=== PATIENT | male | born 1940 | race Caucasian/White ===

== ENCOUNTER → 2017-07-08 | Outpatient (CLI) | payer MEDICARE, OTHER ==
[~2017-07-08] MED LIST: ALLO100 PO; AMLO5 PO; Aspir 8181 MG PO; CALC.25 PO; CIPR500 PO; DIPH50 PO; DOXA4 PO; EZ NITE SLEEP25 MG PO; EZET10 PO; FEBU40TA PO; FLAX PO; HYDACE5 PO; LEVSOD50 PO; METO25ER; OLME20; OLME40 PO; OXYC10ER; Pravachol40 MG PO; ROSU10TA; VITAMIN D32000 UNIT PO
== END | disposition home or self-care (01) ==
LOC: PLD 09:30
DX: C61 Malignant neoplasm of prostate (principal)
CPT/HCPCS: 88305

== ENCOUNTER 2017-11-07 08:45 | Day surgery (SDC) | payer MEDICARE, OTHER ==
[~2017-11-07 08:45] MED LIST changes: -DIPH50 PO; -FEBU40TA PO; -LEVSOD50 PO; -VITAMIN D32000 UNIT PO
== END 2017-11-07 12:30 | disposition home or self-care (01) ==
LOC: RAD 08:45
PROC: BR29YZZ Computerized Tomography (CT Scan) of Lumbar Spine using Other Contrast (ICD-10-PCS; principal; 2017-11-07)
DX: M51.16 Intervertebral disc disorders with radiculopathy, lumbar region (principal); M46.96 Unspecified inflammatory spondylopathy, lumbar region
CPT/HCPCS: 62304; 72132; Q9966

== ENCOUNTER → 2018-03-17 | Outpatient (CLI) | payer MEDICARE, OTHER | END | disposition home or self-care (01) | LOC: PLD 07:48 → LAB SHORT 07:48 | DX: D48.5 Neoplasm of uncertain behavior of skin (principal) | CPT/HCPCS: 88305 ==

== ENCOUNTER 2018-08-06 13:34 | Day surgery (SDC) | payer MEDICARE, OTHER ==
[~2018-08-06] VITALS: Ht 180.3 cm; Wt 113.4 kg
[~2018-08-06 13:34] MED LIST changes: +DIPH50 PO; +FEBU40TA PO; +LEVSOD50 PO; +VITAMIN D32000 UNIT PO
--- NOTE | 2018-08-06 13:58 | NUR ---
08/06/18 1358 Merrick Cifuentes VERSED 1MG IV GIVEN PER DR. ALVARADO ORDER
--- NOTE | 2018-08-06 14:40 | NUR ---
08/06/18 1440 Angelita Hayes PT INTO RECLINER AT 1438, STEADY DURING TRANSFER. AT CHAIRSIDE, PT TOLERATING PO NOURISHMENT AND DENIES PAIN/NAUSEA AT THIS TIME. VSS
== END 2018-08-06 15:00 | disposition home or self-care (01) ==
LOC: ORSCSDS 13:34
PROVIDERS: Orthopaedic Surgery
PROC: 01N54ZZ Release Median Nerve, Percutaneous Endoscopic Approach (ICD-10-PCS; principal; 2018-08-06 15:30)
DX: G56.01 Carpal tunnel syndrome, right upper limb (principal); E11.9 Type 2 diabetes mellitus without complications; I10 Essential (primary) hypertension; I25.10 Atherosclerotic heart disease of native coronary artery without angina pectoris; G47.33 Obstructive sleep apnea (adult) (pediatric); E03.9 Hypothyroidism, unspecified; Z79.899 Other long term (current) drug therapy; Z79.82 Long term (current) use of aspirin
CPT/HCPCS: 82947; J0690; J2250; J7120

== ENCOUNTER 2018-09-14 01:36 | Day surgery (SDC) | payer MEDICARE, OTHER ==
--- NOTE | 2018-09-14 13:52 | NUR ---
PATIENT D/C HOME WITH COPY OF D/C INSTRUCTIONS AMBULATORY.
--- NOTE | 2018-09-15 10:15 | NUR ---
LATE ENTRY- PATIENT WITH GOOD SENSATION AND STRENGTH BLE PRIOR TO DISCHARGE HOME. DRESSING/BANDAID TO LOW BACK REMAINED UNCHANGED C,D,I.
== END 2018-09-14 22:41 | disposition home or self-care (01) ==
LOC: RAD 01:36 → CT 11:00 → RAD 22:41
DX: M47.26 Other spondylosis with radiculopathy, lumbar region (principal); M48.062 Spinal stenosis, lumbar region with neurogenic claudication
CPT/HCPCS: 62304; 72132; Q9966

== ENCOUNTER 2018-11-25 10:00 | Day surgery (SDC) | payer MEDICARE, OTHER ==
[~2018-11-25] VITALS: Wt 113.2 kg
[~2018-11-25 10:00] MED LIST changes: +HYDCHL12.5 PO; +LEVOXY PO
--- NOTE | 2018-11-25 11:10 | NUR ---
Ambulatory in Day Surgery. Patient states colon prep results clear. History, Chart, Medications and Allergies reviewed before start of procedure. Lungs clear T/O to Auscultation. Patient confirms NPO status and agrees with scheduled surgery. Patient States Post-Procedure ride home has been arranged. Pt's at bedside.
--- NOTE | 2018-11-25 11:32 | NUR ---
11/25/18 1132 Laureano Donaldson History, Chart, Medications and Allergies reviewed before start of procedure.MONITOR INTACT WITH CONTINUOUS PULSE OXIMETRY AND INTERMITTENT BP.3-LEAD EKG REVIEWED WITH PHYSICIAN PRIOR TO START OF PROCEDURE.O2 VIA N/C INTACT THROUGHOUT SEDATION/PROCEDURE. Patient confirms NPO status and agrees with scheduled surgery.PATIENT DETERMINED TO BE ASA APPROPRIATE FOR PROPOFOL SEDATION PRIOR TO START OF PROCEDURE BY DR. HUI.
--- NOTE | 2018-11-25 12:12 | NUR ---
"DAY SURGERY RN | Report from Ronaldo ASTORGA. Sent Ronaldo Armas RN to lunch."
--- NOTE | 2018-11-25 12:31 | NUR ---
"DAY SURGERY RN | PATIENT DISCHARGE VSS. A/O. NO ISSUES. Discharge instructions given to patient with family present. IV out without issue. Patient denies nausea, pain. Tolerating PO fluids. Patient taken in wheelchair to front entrance by volunteer to private vehicle. is tractor trailer moving van driver."
== END 2018-11-25 22:53 | disposition home or self-care (01) ==
LOC: ORSCMMR 10:00 → ORD 11:00 → ORSCMMR 22:53
PROVIDERS: Internal Medicine Gastroenterology
PROC: 0DBP8ZX Excision of Rectum, Via Natural or Artificial Opening Endoscopic, Diagnostic (ICD-10-PCS; principal; 2018-11-25 11:00)
PROC: 0DBM8ZX Excision of Descending Colon, Via Natural or Artificial Opening Endoscopic, Diagnostic (ICD-10-PCS; principal; 2018-11-25 11:00)
DX: Z12.11 Encounter for screening for malignant neoplasm of colon (principal); Z80.0 Family history of malignant neoplasm of digestive organs; Z86.010 Personal history of colon polyps; D12.4 Benign neoplasm of descending colon; K62.1 Rectal polyp; K57.30 Diverticulosis of large intestine without perforation or abscess without bleeding; E03.9 Hypothyroidism, unspecified; Z79.899 Other long term (current) drug therapy; I10 Essential (primary) hypertension
CPT/HCPCS: 82947; 88305; J2704; J7120

== ENCOUNTER 2018-12-02 11:37 | Day surgery (SDC) | payer MEDICARE, OTHER ==
[~2018-12-02] VITALS: Ht 180.3 cm; Wt 113.3 kg
--- NOTE | 2018-12-02 12:26 | NUR ---
12/02/18 1226 AGUILA TONG CALLED SHE SAID NO MEDS WERE TAKEN THIS MORNING
== END 2018-12-02 13:11 | disposition home or self-care (01) ==
LOC: ORSCSDS 11:37
PROVIDERS: Anesthesiology
PROC: 3E0R33Z Introduction of Anti-inflammatory into Spinal Canal, Percutaneous Approach (ICD-10-PCS; principal; 2018-12-02 14:30)
DX: M96.1 Postlaminectomy syndrome, not elsewhere classified (principal); M51.16 Intervertebral disc disorders with radiculopathy, lumbar region; I10 Essential (primary) hypertension; Z95.0 Presence of cardiac pacemaker; E03.9 Hypothyroidism, unspecified; E11.9 Type 2 diabetes mellitus without complications; I25.10 Atherosclerotic heart disease of native coronary artery without angina pectoris; Z79.899 Other long term (current) drug therapy
CPT/HCPCS: J1040

== ENCOUNTER 2019-12-10 20:42 | Emergency (ER) | payer MEDICARE, OTHER ==
[~2019-12-10] VITALS: Ht 180.3 cm; Wt 106.6 kg
[2019-12-10 21:39] LABS: BASOPHILS ABSOLUTE AUTO 0.03 K/mm3 (0.00-0.23); BASOPHILS PERCENT AUTO 0 % (0-2); EOSINOPHILS ABSOLUTE AUTO 0.04 K/mm3 (0.00-0.68); EOSINOPHILS PERCENT AUTO 0 % (0-6); Hematocrit 39.3 % (37.0-53.0); Hemoglobin 12.8 g/dL (13.5-17.5); IMMATURE GRAN ABSOLUTE AUTO 0.07 K/mm3 (0.00-0.10); IMMATURE GRAN PERCENT AUTO 1 % (0-1); LYMPHOCYTES ABSOLUTE AUTO 0.95 K/mm3 (0.84-5.20); LYMPHOCYTES PERCENT AUTO 6 % (21-46); MONOCYTES ABSOLUTE AUTO 1.24 K/mm3 (0.16-1.47); MONOCYTES PERCENT AUTO 8 % (4-13); Mean Corpuscular HGB 29.6 pg (26.0-34.0); Mean Corpuscular HGB Conc 32.6 g/dL (31.5-36.5); Mean Corpuscular Volume 91 fL (80-100); Mean Platelet Volume 11.5 fL (9.1-12.4); NEUTROPHILS ABSOLUTE AUTO 12.76 K/mm3 (1.96-9.15); NEUTROPHILS PERCENT AUTO 85 % (41-73); Platelet Count 188 K/mm3 (150-400); RDW Coefficient Variation 13.2 % (11.7-14.2); RDW Standard Deviation 44.6 fL (35.1-46.3); Red Blood Cell Count 4.32 M/mm3 (4.30-5.90); White Blood Cell Count 15.09 K/mm3 (4.00-11.30)
[2019-12-10 21:58] LABS: Albumin, Blood 3.6 g/dL (3.4-5.0); Bun/Creatinine Ratio 18.8 (12.0-20.0); Calcium, Blood 9.3 mg/dL (8.5-10.1); Creatinine, Blood 2.02 mg/dL (0.60-1.20); Globulin, Blood 3.7 g/dL (2.2-4.0); Potassium, Blood 4.2 mmol/L (3.5-5.5); Total Protein, Blood 7.3 g/dL (6.4-8.2)
[2019-12-10 23:11] LABS: Source, Urine Clean Catch
[2019-12-10] MEDS ORDERED: AMLO10 PO (23:11)
[2019-12-10] MEDS ORDERED: NEBI10 PO (23:11)
[2019-12-10] MEDS ORDERED: CALC.25 PO (23:11)
[2019-12-10] MEDS ORDERED: GUAIFENESIN AC473 M1 PO (23:12)
[2019-12-10] MEDS ORDERED: FLAX SEED OIL1000 MG PO (23:12)
[2019-12-10] MEDS ORDERED: FEBU40TA PO (23:12)
[2019-12-10 23:13] LABS: Blood, Urine 4+ (Neg); Glucose Qualitative, Urine Neg (Neg); Ketones, Urine Neg (Neg); Leukocyte Esterase, Urine 3+ (Neg); Nitrite, Urine Pos (Neg); Protein, Urine 3+ (Neg); Urobilinogen, Urine NORM (Normal)
[2019-12-10] MEDS ORDERED: GABA300 PO (23:13)
[2019-12-10] MEDS ORDERED: FLUT.05NI (23:13)
[2019-12-10] MEDS ORDERED: TELM20 PO (23:14)
[2019-12-10] MEDS ORDERED: LIVALO2 MG PO (23:14)
[2019-12-10] MEDS ORDERED: HYDCHL12.5 PO (23:14)
[2019-12-10] MEDS ORDERED: EUTHYROX50 MCG PO (23:14)
[2019-12-10] MEDS ORDERED: VITAMIN D350 MC2 PO (23:15)
[2019-12-10] MEDS ORDERED: TRAM50 PO (23:15)
[2019-12-10 23:20] LABS: Appearance, Urine Cloudy (Clear); Bilirubin, Urine 1+ (Neg); Color, Urine Yellow (P-Yellow)
[2019-12-10 23:21] LABS: Bacteria Many /hpf; Red Blood Cells, Urine 0-2 /hpf (0-2); Squamous Epithelial Cells Rare /hpf (Few); White Blood Cells, Urine TNTC /hpf (0-5)
[2019-12-11 00:17] LABS: Adenovirus Not Detected (NOT DETECT); Bordetella pertussis Not Detected (NOT DETECT); Chlamydophila pneumoniae Not Detected (NOT DETECT); Coronavirus 229E Not Detected (NOT DETECT); Coronavirus HKU1 Not Detected (NOT DETECT); Coronavirus NL63 Not Detected (NOT DETECT); Coronavirus OC43 Not Detected (NOT DETECT); Human Metapneumovirus Not Detected (NOT DETECT); Human Rhinovirus/Enterovirus Not Detected (NOT DETECT); Influenza A/2009-H1 Not Detected (NOT DETECT); Influenza A/H1 Not Detected (NOT DETECT); Influenza A/H3 Not Detected (NOT DETECT); Influenza B Not Detected (NOT DETECT); Mycoplasma pneumoniae Not Detected (NOT DETECT); Parainfluenza Virus 1 Not Detected (NOT DETECT); Parainfluenza Virus 2 Not Detected (NOT DETECT); Parainfluenza Virus 3 Not Detected (NOT DETECT); Parainfluenza Virus 4 Not Detected (NOT DETECT); Respiratory Syncytial Virus Not Detected (NOT DETECT)
[2019-12-11] MEDS ORDERED: CEPH500 PO (01:54)
[2019-12-11] MEDS ORDERED: Cipro500 MG PO (01:54)
== END 2019-12-11 02:25 | disposition home or self-care (01) ==
LOC: ER 20:42
PROVIDERS: Emergency Medicine
DX: N39.0 Urinary tract infection, site not specified (principal); Z88.5 Allergy status to narcotic agent; Z88.6 Allergy status to analgesic agent; Z88.8 Allergy status to other drugs, medicaments and biological substances; Z79.899 Other long term (current) drug therapy; I12.9 Hypertensive chronic kidney disease with stage 1 through stage 4 chronic kidney disease, or unspecified chronic kidney disease; N18.9 Chronic kidney disease, unspecified
CPT/HCPCS: 0099U; 71045; 80053; 81001; 85025; 87077; 87086; 87186; 96365; 99284-25; J0696

== ENCOUNTER 2020-04-05 09:53 | Emergency (ER) | payer MEDICARE, OTHER ==
[~2020-04-05] VITALS: Ht 180.3 cm; Wt 95.2 kg
[~2020-04-05 09:53] MED LIST changes: +AMLO10 PO; +CEPH500 PO; +Cipro500 MG PO; +EUTHYROX50 MCG PO; +FLAX SEED OIL1000 MG PO; +FLUT.05NI; +GABA300 PO; +GUAIFENESIN AC473 M1 PO; +LIVALO2 MG PO; +NEBI10 PO; +TELM20 PO; +TRAM50 PO; +VITAMIN D350 MC2 PO
[2020-04-05 10:18] LABS: BASOPHILS ABSOLUTE AUTO 0.04 K/mm3 (0.00-0.23); BASOPHILS PERCENT AUTO 1 % (0-2); EOSINOPHILS ABSOLUTE AUTO 0.15 K/mm3 (0.00-0.68); EOSINOPHILS PERCENT AUTO 2 % (0-6); Hematocrit 38.4 % (37.0-53.0); Hemoglobin 12.2 g/dL (13.5-17.5); IMMATURE GRAN ABSOLUTE AUTO 0.02 K/mm3 (0.00-0.10); IMMATURE GRAN PERCENT AUTO 0 % (0-1); LYMPHOCYTES ABSOLUTE AUTO 1.74 K/mm3 (0.84-5.20); LYMPHOCYTES PERCENT AUTO 20 % (21-46); MONOCYTES ABSOLUTE AUTO 0.75 K/mm3 (0.16-1.47); MONOCYTES PERCENT AUTO 9 % (4-13); Mean Corpuscular HGB Conc 31.8 g/dL (31.5-36.5); Mean Corpuscular Volume 94 fL (80-100); Mean Platelet Volume 11.3 fL (9.1-12.4); NEUTROPHILS ABSOLUTE AUTO 5.87 K/mm3 (1.96-9.15); NEUTROPHILS PERCENT AUTO 68 % (41-73); Platelet Count 213 K/mm3 (150-400); RDW Coefficient Variation 13.3 % (11.7-14.2); Red Blood Cell Count 4.07 M/mm3 (4.30-5.90); White Blood Cell Count 8.57 K/mm3 (4.00-11.30)
[2020-04-05 10:28] LABS: International Normalized Ratio 1.01; Prothrombin Time Results 10.8 Sec (9.7-11.5)
[2020-04-05 10:35] LABS: Alanine Aminotransfer (ALT/SGP 39 U/L (12-78); Albumin, Blood 3.7 g/dL (3.4-5.0); Albumin/Globulin Ratio 1.2 (0.8-1.8); Alk Phos 63 U/L (50-136); Anion Gap 6 mmol/L (6-16); Aspartate Aminotrans (AST/SGOT 28 U/L (12-37); Bilirubin, Total 0.6 mg/dL (0.1-1.0); Blood Urea Nitrogen 25 mg/dL (8-24); Bun/Creatinine Ratio 16.8 (12.0-20.0); CO2, Blood 28 mmol/L (21-32); Calcium, Blood 9.3 mg/dL (8.5-10.1); Chloride, Blood 106 mmol/L (98-108); Creatinine, Blood 1.49 mg/dL (0.60-1.20); Ethanol (Alcohol), Blood, Med <3 mg/dL; Globulin, Blood 3.1 g/dL (2.2-4.0); Glomerular Filtration Rate 48 (60-); Glucose, Blood 166 mg/dL (70-99); Potassium, Blood 4.6 mmol/L (3.5-5.5); Sodium, Blood 140 mmol/L (136-145); Total Protein, Blood 6.8 g/dL (6.4-8.2)
[2020-04-05] MEDS ORDERED: CODACE30 PO (12:25)
== END 2020-04-05 13:57 | disposition home or self-care (01) ==
LOC: ER 09:53
PROVIDERS: Emergency Medicine
DX: S43.014A Anterior dislocation of right humerus, initial encounter (principal); S01.81XA Laceration without foreign body of other part of head, initial encounter; J90 Pleural effusion, not elsewhere classified; I10 Essential (primary) hypertension; Z88.5 Allergy status to narcotic agent; Z88.6 Allergy status to analgesic agent; Z79.899 Other long term (current) drug therapy; Z87.442 Personal history of urinary calculi; Z95.0 Presence of cardiac pacemaker; W11.XXXA Fall on and from ladder, initial encounter
CPT/HCPCS: 70450; 71045; 71260; 72125; 73020; 73030; 74177; 80053; 83690; 85025; 85610; G0480; J2704; J3010; J7030; Q9967

== ENCOUNTER → 2020-05-29 | Outpatient (CLI) | payer MEDICARE, OTHER ==
[~2020-05-29] MED LIST changes: +CEFP200 PO; +CODACE30 PO
== END | disposition home or self-care (01) ==
LOC: PLD 10:23 → LAB SHORT 10:23
DX: D48.5 Neoplasm of uncertain behavior of skin (principal)
CPT/HCPCS: 88305

== ENCOUNTER 2020-10-12 20:03 | Emergency (ER) | payer MEDICARE, OTHER ==
[~2020-10-12] VITALS: Ht 180.3 cm; Wt 108.9 kg
[~2020-10-12 20:03] MED LIST changes: -CEFP200 PO
[2020-10-13 00:45] LABS: BASOPHILS ABSOLUTE AUTO 0.02 K/mm3 (0.00-0.23); BASOPHILS PERCENT AUTO 0 % (0-2); EOSINOPHILS ABSOLUTE AUTO 0.01 K/mm3 (0.00-0.68); EOSINOPHILS PERCENT AUTO 0 % (0-6); Hematocrit 34.9 % (37.0-53.0); Hemoglobin 11.4 g/dL (13.5-17.5); IMMATURE GRAN ABSOLUTE AUTO 0.03 K/mm3 (0.00-0.10); IMMATURE GRAN PERCENT AUTO 0 % (0-1); LYMPHOCYTES ABSOLUTE AUTO 0.86 K/mm3 (0.84-5.20); LYMPHOCYTES PERCENT AUTO 8 % (21-46); MONOCYTES ABSOLUTE AUTO 1.18 K/mm3 (0.16-1.47); MONOCYTES PERCENT AUTO 11 % (4-13); Mean Corpuscular HGB Conc 32.7 g/dL (31.5-36.5); Mean Corpuscular Volume 92 fL (80-100); Mean Platelet Volume 12.5 fL (9.1-12.4); NEUTROPHILS ABSOLUTE AUTO 8.46 K/mm3 (1.96-9.15); NEUTROPHILS PERCENT AUTO 80 % (41-73); Platelet Count 166 K/mm3 (150-400); RDW Coefficient Variation 13.9 % (11.7-14.2); RDW Standard Deviation 47.2 fL (35.1-46.3); White Blood Cell Count 10.56 K/mm3 (4.00-11.30)
[2020-10-13 00:56] LABS: Albumin, Blood 3.2 g/dL (3.4-5.0); Bilirubin, Total 0.8 mg/dL (0.1-1.0); Bun/Creatinine Ratio 19.4 (12.0-20.0); Calcium, Blood 8.5 mg/dL (8.5-10.1); Creatinine, Blood 1.75 mg/dL (0.60-1.20); Globulin, Blood 3.3 g/dL (2.2-4.0); Potassium, Blood 4.7 mmol/L (3.5-5.5); Total Protein, Blood 6.5 g/dL (6.4-8.2)
[2020-10-13 01:09] LABS: Source, Urine Clean Catch
[2020-10-13 01:14] LABS: Bilirubin, Urine Neg (Neg); Blood, Urine 4+ (Neg); Glucose Qualitative, Urine Neg (Neg); Ketones, Urine Neg (Neg); Leukocyte Esterase, Urine 3+ (Neg); Nitrite, Urine Pos (Neg); Protein, Urine 2+ (Neg); Specific Gravity, Urine 1.015 (1.003-1.022); Urobilinogen, Urine NORM (Normal)
[2020-10-13 01:15] LABS: Appearance, Urine Cloudy (Clear); Color, Urine Yellow (P-Yellow)
[2020-10-13 01:22] LABS: Bacteria Many /hpf; Squamous Epithelial Cells Few /hpf (Few); White Blood Cells, Urine TNTC /hpf (0-5)
[2020-10-13] MEDS ORDERED: CEFP200 PO (03:02)
== END 2020-10-13 03:37 | disposition home or self-care (01) ==
LOC: ER 20:03
PROVIDERS: Emergency Medicine
DX: N39.0 Urinary tract infection, site not specified (principal); I12.9 Hypertensive chronic kidney disease with stage 1 through stage 4 chronic kidney disease, or unspecified chronic kidney disease; N18.9 Chronic kidney disease, unspecified; Z79.899 Other long term (current) drug therapy; Z88.5 Allergy status to narcotic agent; Z88.6 Allergy status to analgesic agent; Z95.0 Presence of cardiac pacemaker
CPT/HCPCS: 36415; 80053; 81001; 85025; 87077; 87086; 87186; 96365; 99283; J0696

== ENCOUNTER → 2020-11-06 | Outpatient (CLI) | payer MEDICARE, OTHER ==
[~2020-11-06] MED LIST changes: +CEFP200 PO
[2020-11-06 14:07] LABS: Source, Urine Clean Catch
[2020-11-06 14:10] LABS: Appearance, Urine Cloudy (Clear); Bilirubin, Urine Neg (Neg); Blood, Urine 1+ (Neg); Color, Urine Yellow (P-Yellow); Glucose Qualitative, Urine NORM (Normal); Ketones, Urine 1+ (Neg); Leukocyte Esterase, Urine 2+ (Neg); Nitrite, Urine Pos (Neg); Protein, Urine 1+ (Neg); Specific Gravity, Urine 1.015 (1.003-1.022); Urobilinogen, Urine NORM (Normal)
[2020-11-06 14:16] LABS: Bacteria Many /hpf; Squamous Epithelial Cells Rare /hpf (Few); White Blood Cells, Urine TNTC /hpf (0-5)
== END ==
LOC: LAB EV 14:05 → LAB SHORT 14:05
PROVIDERS: Family Medicine
DX: N39.0 Urinary tract infection, site not specified (principal)
CPT/HCPCS: 81001; 87077; 87086; 87186

== ENCOUNTER → 2020-12-19 | Outpatient (CLI) | payer MEDICARE, OTHER | LOC: LAB 14:16 → LAB SHORT 14:16 | DX: D48.5 Neoplasm of uncertain behavior of skin (principal) | CPT/HCPCS: 88305 ==

== ENCOUNTER → 2021-05-15 | Outpatient (CLI) | payer MEDICARE, OTHER | END | disposition home or self-care (01) | LOC: LAB SHORT 15:35 | DX: N39.0 Urinary tract infection, site not specified (principal) | CPT/HCPCS: 87077; 87086; 87186 ==

== ENCOUNTER → 2021-05-29 | Outpatient (CLI) | payer MEDICARE, OTHER | END | disposition home or self-care (01) | LOC: LAB SHORT 11:43 | DX: D48.5 Neoplasm of uncertain behavior of skin (principal) | CPT/HCPCS: 88305 ==

== ENCOUNTER 2021-06-21 10:17 | Day surgery (SDC) | payer MEDICARE, OTHER ==
[~2021-06-21] VITALS: Ht 180.3 cm; Wt 111.4 kg
[~2021-06-21 10:17] MED LIST changes: +ASPI81CH PO; +ATOR40TA PO; +Bisoprolol Fumar5 MG PO
--- NOTE | 2021-06-21 14:26 | NUR ---
DISCHARGE INSTRUCTIONS REVIEWED WITH PT, VERBALIZES UNDERSTANDING OF INSTRUCTIONS.
--- NOTE | 2021-06-21 15:10 | NUR ---
DR. KO HERE TO EVALUATE INCISION SITE. ICE APPLIED FOR 30 MINUTES PRIOR TO EVALUATION. SITE LESS SWOLLEN.
--- NOTE | 2021-06-21 15:20 | NUR ---
DISCHARGED HOME VIA WHEELCHAIR. INCISION DRESSING DRY AND INTACT. DRIVING.
== END 2021-06-21 23:30 | disposition home or self-care (01) ==
LOC: MHTC 10:17
DX: Z45.010 Encounter for checking and testing of cardiac pacemaker pulse generator [battery] (principal); I25.10 Atherosclerotic heart disease of native coronary artery without angina pectoris; E78.5 Hyperlipidemia, unspecified; E11.9 Type 2 diabetes mellitus without complications; Z88.6 Allergy status to analgesic agent
CPT/HCPCS: 33228; 99152; 99153; C1781; C1785; J0690; J1644; J2250; J3010; J7040

== ENCOUNTER → 2021-08-29 | Outpatient (CLI) | payer MEDICARE, OTHER ==
[2021-08-29 18:38] LABS: Creatinine Urine 93.1 mg/dL (27.00-270.00); Protein, Urine Quantitative 21.8 mg/dL (0.0-11.9)
[2021-08-29 18:40] LABS: Microalbumin, Urine Quant. 74.4 mg/L (0.000-20.000)
== END | disposition home or self-care (01) ==
LOC: LAB SHORT 08:00
PROVIDERS: Internal Medicine Nephrology
DX: N18.30 Chronic kidney disease, stage 3 unspecified (principal); D63.1 Anemia in chronic kidney disease; E55.9 Vitamin D deficiency, unspecified; E78.00 Pure hypercholesterolemia, unspecified; E27.0 Other adrenocortical overactivity; R76.9 Abnormal immunological finding in serum, unspecified; R94.5 Abnormal results of liver function studies; R94.6 Abnormal results of thyroid function studies
CPT/HCPCS: 82043; 82570; 84156

== ENCOUNTER 2022-08-30 06:51 | Day surgery (SDC) | payer MEDICARE, OTHER ==
[~2022-08-30] VITALS: Ht 180.3 cm; Wt 114.0 kg
[~2022-08-30 06:51] MED LIST changes: +FERRIC X-150150 M1 PO
--- NOTE | 2022-08-30 10:07 | NUR ---
10CC AIR REMOVED FROM R WRIST TR BAND. -BLEEDING OR SWELLING.
--- NOTE | 2022-08-30 11:00 | NUR ---
R WRIST TR BAND REMOVED /S BLEEDING OR SWELLING/. PUNCTURE AREA CLEANED /C NS AND CLOTH DOT DRSG PLACED. R WRIST SPLINT REAPPLIED. PT AND FAMILY VERBALIZED UNDERSTANDING OF WRITTEN AND VERBAL D/C INST. IV REMOVED. PT TAKEN OUT OF THE [facility]ENTER VIA W/C.
--- NOTE | 2022-08-30 11:31 | NUR ---
PT DISCHARGED PER W/C WITH ONE STAFF.
== END 2022-08-30 13:05 | disposition home or self-care (01) ==
LOC: MHTC 06:51
DX: I25.110 Atherosclerotic heart disease of native coronary artery with unstable angina pectoris (principal); E78.5 Hyperlipidemia, unspecified; G47.33 Obstructive sleep apnea (adult) (pediatric); I12.9 Hypertensive chronic kidney disease with stage 1 through stage 4 chronic kidney disease, or unspecified chronic kidney disease; N18.9 Chronic kidney disease, unspecified; E11.22 Type 2 diabetes mellitus with diabetic chronic kidney disease; Z79.899 Other long term (current) drug therapy; Z79.82 Long term (current) use of aspirin; Z95.0 Presence of cardiac pacemaker; Z88.6 Allergy status to analgesic agent
CPT/HCPCS: 76937; 93458; 99152; 99153; C1769; C1887; C1894; J1644; J2250; J3010; J7030; J7050; Q9967

== ENCOUNTER 2022-11-05 07:58 | Day surgery (SDC) | payer MEDICARE, OTHER ==
[~2022-11-05] VITALS: Ht 177.8 cm; Wt 113.0 kg
[2022-11-05] VITALS (13 sets, daily range): BP systolic 93–152; BP diastolic 57–79
--- NOTE | 2022-11-05 09:06 | NUR ---
Ambulatory in Day Surgery. Pre-Op teaching done. Pt verbalizes understanding. Patient confirms NPO status and agrees with scheduled surgery. Patient states colon prep results clear. Patient States Post-Procedure ride home has been arranged. Lungs clear T/O to Auscultation.
--- NOTE | 2022-11-05 09:08 | NUR ---
11/05/22 0908 Darcie Justin HISTORY, CHART, MEDICATIONS AND ALLERGIES REVIEWED BEFORE START OF PROCEDURE. PATIENT CONFIRMS NPO STATUS AND AGREES WITH SCHEDULED PROCEDURE. 3-LEAD EKG REVIEWED WITH PHYSICIAN PRIOR TO START OF PROCEDURE. MONITOR INTACT WITH CONTINUOUS PULSE OXIMETRY,CAPNOGRAPHY, 3-LEAD EKG, INTERMITTENT BP. SUPPLEMENTAL O2 TO BE TITRATED THROUGHOUT PROCEDURE TO MAINTAIN O2 SATURATION ABOVE 90%. PATIENT DETERMINED TO BE ASA APPROPRIATE FOR PROPOFOL SEDATION PRIOR TO START OF PROCEDURE BY DR. HUI.
--- NOTE | 2022-11-05 09:40 | NUR ---
Discharge instructions reviewed with patient. Patient verbalizes understanding. Copy given to patient to take home. PT AT BEDSIDE, DR HUI CAME AND SPOKE TO PT AND POST PROCEDURE. PT DENIES NEED FOR ANYTHING TO DRINK, NO C/O PAIN.
--- NOTE | 2022-11-05 09:50 | NUR ---
PT DRESSED, Discharged via wheelchair to private car for ride home.
== END 2022-11-05 09:53 | disposition home or self-care (01) ==
LOC: ORSCMMR 07:58 → ORD 09:00 → ORSCMMR 09:53
PROVIDERS: Internal Medicine Gastroenterology
PROC: 0DBL8ZX Excision of Transverse Colon, Via Natural or Artificial Opening Endoscopic, Diagnostic (ICD-10-PCS; principal; 2022-11-05 09:00)
PROC: 0DBK8ZX Excision of Ascending Colon, Via Natural or Artificial Opening Endoscopic, Diagnostic (ICD-10-PCS; principal; 2022-11-05 09:00)
PROC: 0DBN8ZX Excision of Sigmoid Colon, Via Natural or Artificial Opening Endoscopic, Diagnostic (ICD-10-PCS; principal; 2022-11-05 09:00)
DX: Z12.11 Encounter for screening for malignant neoplasm of colon (principal); Z86.010 Personal history of colon polyps; Z80.0 Family history of malignant neoplasm of digestive organs; K63.5 Polyp of colon; D12.5 Benign neoplasm of sigmoid colon; K57.30 Diverticulosis of large intestine without perforation or abscess without bleeding; E03.9 Hypothyroidism, unspecified; Z95.0 Presence of cardiac pacemaker; E78.00 Pure hypercholesterolemia, unspecified; I10 Essential (primary) hypertension; Z79.899 Other long term (current) drug therapy
CPT/HCPCS: 82947; 88305; J2704; J7120

== ENCOUNTER 2024-08-06 16:46 | Emergency (ER) | payer MEDICARE, OTHER ==
[~2024-08-06] VITALS: Ht 177.8 cm; Wt 90.7 kg
[2024-08-06] MEDS ORDERED: METOPROLOL SUCC25 MG PO (16:58)
[2024-08-06 17:10] LABS: BASOPHILS ABSOLUTE AUTO 0.03 K/mm3 (0.00-0.23); BASOPHILS PERCENT AUTO 1 % (0-2); EOSINOPHILS ABSOLUTE AUTO 0.14 K/mm3 (0.00-0.68); EOSINOPHILS PERCENT AUTO 2 % (0-6); Hematocrit 37.8 % (37.0-53.0); Hemoglobin 12.7 g/dL (13.5-17.5); IMMATURE GRAN ABSOLUTE AUTO 0.03 K/mm3 (0.00-0.10); IMMATURE GRAN PERCENT AUTO 1 % (0-1); LYMPHOCYTES ABSOLUTE AUTO 1.19 K/mm3 (0.84-5.20); LYMPHOCYTES PERCENT AUTO 19 % (21-46); MONOCYTES ABSOLUTE AUTO 0.61 K/mm3 (0.16-1.47); MONOCYTES PERCENT AUTO 10 % (4-13); Mean Corpuscular HGB 31.3 pg (26.0-34.0); Mean Corpuscular HGB Conc 33.6 g/dL (31.5-36.5); Mean Corpuscular Volume 93 fL (80-100); Mean Platelet Volume 11.2 fL (9.1-12.4); NEUTROPHILS PERCENT AUTO 69 % (41-73); Platelet Count 177 K/mm3 (150-400); RDW Coefficient Variation 14.1 % (11.7-14.2); RDW Standard Deviation 47.8 fL (35.1-46.3); Red Blood Cell Count 4.06 M/mm3 (4.30-5.90)
[2024-08-06] MEDS ORDERED: Nitroglycerin 0.4 MG SUBL SL ONE (17:20)
[2024-08-06 17:29] LABS: Albumin, Blood 3.4 g/dL (3.4-5.0); Bilirubin, Total 0.6 mg/dL (0.1-1.0); Bun/Creatinine Ratio 19.5 (12.0-20.0); Calcium, Blood 9.4 mg/dL (8.5-10.1); Creatinine, Blood 1.59 mg/dL (0.60-1.20); Globulin, Blood 3.3 g/dL (2.2-4.0); Potassium, Blood 4.7 mmol/L (3.5-5.5); Total Protein, Blood 6.7 g/dL (6.4-8.2)
[2024-08-06 19:45] VITALS: BP 134/64
== END 2024-08-06 19:51 | disposition home or self-care (01) ==
LOC: ER 16:46
PROVIDERS: Student in an Organized Health Care Education/Training Program
DX: R07.89 Other chest pain (principal); I12.9 Hypertensive chronic kidney disease with stage 1 through stage 4 chronic kidney disease, or unspecified chronic kidney disease; N18.9 Chronic kidney disease, unspecified; Z86.79 Personal history of other diseases of the circulatory system; Z79.899 Other long term (current) drug therapy; Z88.5 Allergy status to narcotic agent; Z88.6 Allergy status to analgesic agent; Z91.048 Other nonmedicinal substance allergy status
CPT/HCPCS: 80053; 83735; 84484; 85025; 85379; 93005; 93010; 99285-25

== ENCOUNTER 2024-12-24 01:29 | Inpatient (IN) | payer MEDICARE, OTHER ==
[~2024-12-24] VITALS: Ht 180.3 cm; Wt 106.1 kg
[~2024-12-24 01:29] MED LIST changes: +METOPROLOL SUCC25 MG PO
[2024-12-24 01:48] LABS: BASOPHILS ABSOLUTE AUTO 0.02 K/mm3 (0.00-0.23); BASOPHILS PERCENT AUTO 0 % (0-2); EOSINOPHILS ABSOLUTE AUTO 0.14 K/mm3 (0.00-0.68); EOSINOPHILS PERCENT AUTO 2 % (0-6); Hematocrit 35.4 % (37.0-53.0); Hemoglobin 11.5 g/dL (13.5-17.5); IMMATURE GRAN ABSOLUTE AUTO 0.02 K/mm3 (0.00-0.10); IMMATURE GRAN PERCENT AUTO 0 % (0-1); LYMPHOCYTES ABSOLUTE AUTO 1.20 K/mm3 (0.84-5.20); LYMPHOCYTES PERCENT AUTO 20 % (21-46); MONOCYTES ABSOLUTE AUTO 0.55 K/mm3 (0.16-1.47); MONOCYTES PERCENT AUTO 9 % (4-13); Mean Corpuscular HGB Conc 32.5 g/dL (31.5-36.5); Mean Corpuscular Volume 94 fL (80-100); NEUTROPHILS ABSOLUTE AUTO 4.08 K/mm3 (1.96-9.15); NEUTROPHILS PERCENT AUTO 68 % (41-73); NRBC ABSOLUTE 0.00 K/mm3 (0.00-0.02); NRBC Auto 0.0 /100 WBC (0.0-0.2); Platelet Count 166 K/mm3 (150-400); RDW Coefficient Variation 13.8 % (11.7-14.2); RDW Standard Deviation 48.0 fL (35.1-46.3)
[2024-12-24 02:02] LABS: Prothrombin Time Results 11.6 Sec (9.7-11.5)
[2024-12-24 02:08] LABS: Alanine Aminotransfer (ALT/SGP 174.0 U/L (12-78); Albumin, Blood 3.4 g/dL (3.4-5.0); Albumin/Globulin Ratio 1.1 (0.8-1.8); Anion Gap 7.0 mmol/L (3-11); Aspartate Aminotrans (AST/SGOT 372.0 U/L (12-37); Bilirubin, Total 0.5 mg/dL (0.1-1.0); Blood Urea Nitrogen 31.0 mg/dL (8-24); CO2, Blood 29.0 mmol/L (21-32); Calcium, Blood 8.6 mg/dL (8.5-10.1); Chloride, Blood 108.0 mmol/L (98-108); Creatinine, Blood 1.63 mg/dL (0.60-1.20); Globulin, Blood 3.1 g/dL (2.2-4.0); Glucose, Blood 129.0 mg/dL (70-99); Potassium, Blood 4.6 mmol/L (3.5-5.5); Sodium, Blood 139.0 mmol/L (136-145); Total Protein, Blood 6.5 g/dL (6.4-8.2)
[2024-12-24 08:25] LABS: Cholesterol 88 mg/dL (50-200); Triglycerides 70 mg/dL (30-160)
[2024-12-24] MEDS ORDERED: FentaNYL Citrate 50 MCG/ML 2 ML Injection IV PRN (08:40)
[2024-12-24] MEDS ORDERED: Enoxaparin 40 MG/0.4 ML SYR SC SCH (09:00)
[2024-12-24 09:58] LABS: CHOL/HDL RATIO 2.2; Cholesterol 91 mg/dL (50-200); HDL Cholesterol 42 mg/dL (>39); LDL/HDL RATIO 0.8; Low Density Lipoprotein Chol 35 mg/dL (0-110); Triglycerides 72 mg/dL (30-160); Very Low Density Lipoprot Chol 14 mg/dL (6-32)
[2024-12-24 10:29] VITALS: BP 158/71
--- NOTE | 2024-12-24 14:52 | NUR ---
REPORT TO PEEWEE ASTORGA TO ASSUME CARE. DR PENA IN TO SEE PATIENT, RECOMMENDING PATIENT TO TRANSFER TO ANOTHER HOSPITAL FOR ERCP PROCEDURE. IMAGES AND REQUESTS SENT TO [facility], AWAITING MORE INFORMATION ON TRANSFER. PATIENT REMAINS NPO AT THIS TIME. IV FLUIDS RUNNING. DENIES PAIN AT THIS TIME. DAUGHTER IS IN ROOM FOR SUPPORT. NOTIFIED DAUGHTER OF LATEST UPDATE. PATIENT IS ABLE TO MAKE NEEDS KNOWN. CALL LIGHT IN REACH.
--- NOTE | 2024-12-24 15:07 | NUR ---
REPORT RECEIVED FROM GAURI BENITES. ASSUMED CARE AT THIS TIME
[2024-12-24 15:32] VITALS: BP 116/56
--- NOTE | 2024-12-24 18:29 | NUR ---
NO ACUTE CHANGE SINCE RECIEVED REPORT. PT A/O, USES CALL LIGHT. DENIES PAIN TONIGHT. DR. MICHAEL IN ROOM TONIGHT, PT ADVANCED TO CLEAR LIQ DIET. PLAN IS FOR SURGERY ON FRIDAY
[2024-12-24 19:08] VITALS: BP 126/57
[2024-12-24 23:05] VITALS: BP 122/63
--- NOTE | 2024-12-25 03:38 | NUR ---
SHIFT SUMMARY NO ACUTE CHANGES T/O SHIFT. PT A/OX4 WITH VSS. REPORTS PAIN AT KAYA LEVEL, DENIED NEED FOR INTERVENTION/MEDICATION. TOLERATING CLEAR LIQUID DIET, DENIES N/V. IVF INFUSING PER ORDERS. AWAITING MORNING LABS. IS PLEASAND AND COOPERATIVE WITH CARE. PT CURRENTLY RESTING IN BED WITH EYES CLOSED, RESP EVEN/UNLABORED. PLAN NPO AT MIDNIGHT AND FOR POSSIBLE LAP BRIDGETT ON FRIDAY. WILL GIVE REPORT TO ONCOMING RN
[2024-12-25 04:14] VITALS: BP 116/59
[2024-12-25 05:50] LABS: BASOPHILS ABSOLUTE AUTO 0.02 K/mm3 (0.00-0.23); BASOPHILS PERCENT AUTO 0 % (0-2); EOSINOPHILS ABSOLUTE AUTO 0.05 K/mm3 (0.00-0.68); EOSINOPHILS PERCENT AUTO 1 % (0-6); Hematocrit 32.9 % (37.0-53.0); Hemoglobin 10.8 g/dL (13.5-17.5); IMMATURE GRAN ABSOLUTE AUTO 0.02 K/mm3 (0.00-0.10); IMMATURE GRAN PERCENT AUTO 0 % (0-1); LYMPHOCYTES ABSOLUTE AUTO 0.63 K/mm3 (0.84-5.20); LYMPHOCYTES PERCENT AUTO 8 % (21-46); MONOCYTES ABSOLUTE AUTO 0.94 K/mm3 (0.16-1.47); MONOCYTES PERCENT AUTO 12 % (4-13); Mean Corpuscular HGB Conc 32.8 g/dL (31.5-36.5); Mean Corpuscular Volume 94 fL (80-100); NEUTROPHILS ABSOLUTE AUTO 6.35 K/mm3 (1.96-9.15); NEUTROPHILS PERCENT AUTO 79 % (41-73); NRBC ABSOLUTE 0.00 K/mm3 (0.00-0.02); NRBC Auto 0.0 /100 WBC (0.0-0.2); Platelet Count 143 K/mm3 (150-400); RDW Coefficient Variation 14.0 % (11.7-14.2); RDW Standard Deviation 48.1 fL (35.1-46.3)
[2024-12-25 06:25] LABS: Alanine Aminotransfer (ALT/SGP 112.0 U/L (12-78); Albumin, Blood 2.9 g/dL (3.4-5.0); Albumin/Globulin Ratio 1.0 (0.8-1.8); Anion Gap 6.0 mmol/L (3-11); Aspartate Aminotrans (AST/SGOT 62.0 U/L (12-37); Bilirubin, Total 1.1 mg/dL (0.1-1.0); Blood Urea Nitrogen 24.0 mg/dL (8-24); CO2, Blood 27.0 mmol/L (21-32); Calcium, Blood 8.3 mg/dL (8.5-10.1); Chloride, Blood 107.0 mmol/L (98-108); Creatinine, Blood 1.58 mg/dL (0.60-1.20); Globulin, Blood 2.8 g/dL (2.2-4.0); Glucose, Blood 91.0 mg/dL (70-99); Potassium, Blood 4.1 mmol/L (3.5-5.5); Sodium, Blood 136.0 mmol/L (136-145); Total Protein, Blood 5.7 g/dL (6.4-8.2)
[2024-12-25 07:08] VITALS: BP 117/63
--- NOTE | 2024-12-25 11:04 | NUR ---
MORNING NOTE THIS RN ASSUMED CARE AT APPROX 0715. PATIENT ALERT AND ORIENTED X4. COMMUNICATING NEEDS EFFECTIVELY. SBA PRN W/ MOBILITY. REPOSITIONS HIMSELF INDEPENDENTLY IN BED. VSS. TELEMETRY SHOWING AV PACED. DENIES CHEST PAIN, PRESSURE. DENIES SOB. ON ROOM AIR, SATs >90%. TOLERATING CLEAR LIQUID DIET - DENIES N/V. POSSIBLE SURGERY TOMORROW. IVF INFUSING PER EMAR. CALL LIGHT IN REACH.
[2024-12-25] MEDS ORDERED: CeFAZolin Sodium 2,000 MG in NS 100 ML IV SCH (13:25)
[2024-12-25 14:29] VITALS: BP 129/64
--- NOTE | 2024-12-25 16:18 | NUR ---
SHIFT SUMMARY NO ACUTE CHANGES SINCE MORNING NOTE. PATIENT RESTING T/O DAY - EASILY AROUSABLE WITH VERBAL STIMULI. ALERT AND ORIENTED X4. INDEPENDENT IN ROOM. COMMUNICATES NEEDS EFFECTIVELY. VSS. NO EVENTS REPORTED BY TELEMETRY. ABD PAIN AT A TOLERABLE LEVEL - DENIES NEED FOR INTERVENTION/MEDICATION. IVF INFUSING PER EMAR. TOLERATING FULL LIQUID DIET - NPO AT MIDNIGHT FOR LAP BRIDGETT TOMORROW. VOIDING. CALL LIGHT IN REACH.
[2024-12-25 19:59] VITALS: BP 123/64
[2024-12-26] VITALS (15 sets, daily range): BP systolic 95–153; BP diastolic 40–84
[2024-12-26 05:52] LABS: BASOPHILS ABSOLUTE AUTO 0.02 K/mm3 (0.00-0.23); BASOPHILS PERCENT AUTO 0 % (0-2); EOSINOPHILS ABSOLUTE AUTO 0.07 K/mm3 (0.00-0.68); EOSINOPHILS PERCENT AUTO 1 % (0-6); Hematocrit 33.6 % (37.0-53.0); Hemoglobin 11.0 g/dL (13.5-17.5); IMMATURE GRAN ABSOLUTE AUTO 0.03 K/mm3 (0.00-0.10); IMMATURE GRAN PERCENT AUTO 0 % (0-1); LYMPHOCYTES ABSOLUTE AUTO 0.68 K/mm3 (0.84-5.20); LYMPHOCYTES PERCENT AUTO 9 % (21-46); MONOCYTES ABSOLUTE AUTO 1.12 K/mm3 (0.16-1.47); MONOCYTES PERCENT AUTO 15 % (4-13); Mean Corpuscular HGB Conc 32.7 g/dL (31.5-36.5); Mean Corpuscular Volume 93 fL (80-100); NEUTROPHILS ABSOLUTE AUTO 5.46 K/mm3 (1.96-9.15); NEUTROPHILS PERCENT AUTO 74 % (41-73); NRBC ABSOLUTE 0.00 K/mm3 (0.00-0.02); NRBC Auto 0.0 /100 WBC (0.0-0.2); Platelet Count 131 K/mm3 (150-400); RDW Coefficient Variation 13.8 % (11.7-14.2); RDW Standard Deviation 47.5 fL (35.1-46.3)
--- NOTE | 2024-12-26 06:20 | NUR ---
SHIFT SUMMARY NO ACUTE CHANGES THIS SHIFT. AOX4. VSS. TELE AV PACED HR 63. DENIES N/V, ABD PAIN OR DYSPNEA. TOLERATED LIQUIDS UNTILL 0000. HAS BEEN NPO SINCE FOR POSSIBLE PROCEDURE TODAY. CALL LIGHT IN REACH & PT ABLE TO MAKE NEEDS KNOWN.
[2024-12-26 06:31] LABS: Alanine Aminotransfer (ALT/SGP 76.0 U/L (12-78); Albumin, Blood 2.9 g/dL (3.4-5.0); Albumin/Globulin Ratio 1.0 (0.8-1.8); Anion Gap 5.0 mmol/L (3-11); Aspartate Aminotrans (AST/SGOT 30.0 U/L (12-37); Bilirubin, Total 1.0 mg/dL (0.1-1.0); Blood Urea Nitrogen 19.0 mg/dL (8-24); CO2, Blood 29.0 mmol/L (21-32); Calcium, Blood 8.3 mg/dL (8.5-10.1); Chloride, Blood 107.0 mmol/L (98-108); Creatinine, Blood 1.4 mg/dL (0.60-1.20); Globulin, Blood 2.8 g/dL (2.2-4.0); Glucose, Blood 95.0 mg/dL (70-99); Potassium, Blood 4.0 mmol/L (3.5-5.5); Sodium, Blood 137.0 mmol/L (136-145); Total Protein, Blood 5.7 g/dL (6.4-8.2)
[2024-12-26] MEDS ORDERED: Lidocaine HCl 4% 5 ML SDA ONE (09:21)
--- NOTE | 2024-12-26 14:24 | NUR ---
PT TO PROCEDURE AT THIS TIME.
[2024-12-26] MEDS ORDERED: Bupivacaine 0.5% HCl 5 MG/ML 30MLVIAL ONE (14:28)
--- NOTE | 2024-12-26 14:31 | NUR ---
PT TO PACU VIA BED FROM RM 210 FOR PREOP CARE. ALERT & PLEASANT. AFEBRILE/VSS. DENIES PAIN. SURGICAL PACK COMPLETE. SURGICAL HAT/BP CUFF/PAS SLEEVES PLACED. LR AT TKO. JESUS WINTERS CRNA AT BEDSIDE SPEAKING w/PATIENT.
[2024-12-26] MEDS ORDERED: Ondansetron HCl 2 MG / ML 2ML Vial ONE (14:33)
[2024-12-26] MEDS ORDERED: Dexamethasone Sod Phos 10 MG/ML 1ML VIAL ONE (14:33)
[2024-12-26] MEDS ORDERED: Rocuronium Bromide 10 MG/ML 5ML Injection IV ONE (14:33)
[2024-12-26] MEDS ORDERED: FentaNYL Citrate 50 MCG/ML 2 ML Injection ONE (14:36)
--- NOTE | 2024-12-26 14:37 | NUR ---
PT TO RM 2 VIA BED AT 1435 IN STABLE CONDITION.
[2024-12-26] MEDS ORDERED: Sugammadex Sodium 200 MG/2ML SDV (100 MG/ML) ONE (15:12)
[2024-12-26] MEDS ORDERED: HYDROcodone 5-APAP 325 TAB PO PRN (16:00)
[2024-12-26] MEDS ORDERED: HYDROmorphone HCl/Pf 1MG SYR ONE (16:21)
--- NOTE | 2024-12-26 17:09 | NUR ---
shift summary S/P LAP BRIDGETT PT BACK TO ROOM AT 1645, DENIES PAIN OR NAUSEA AT THIS TIME. LAP SITES X4 WITH GAUZE AND TEGADERM. ORIENTED X4, ON 2L NASAL CANULA, PLAN TO TITRATE TO ROOM AIR PATIENT TOLERATES. REPORTS FEELING VERY TIRED. TOLERATING WATER AND CRACKERS AT THIS TIME.
[2024-12-26] MEDS ORDERED: Ipratropium/Albuterol SulF 2.5-0.5MG/3 ML Amp INH PRN (19:35)
[2024-12-26] MEDS ORDERED: Bisoprolol Fuma10 MG PO (23:51)
[2024-12-26] MEDS ORDERED: ELIQUIS2.5 MG PO (23:52)
[2024-12-26] MEDS ORDERED: VITAMIN D350 MC3 PO (23:53)
[2024-12-26] MEDS ORDERED: ASCORBIC ACID500 MG PO (23:53)
[2024-12-26] MEDS ORDERED: FLAX PO (23:54)
[2024-12-27] VITALS (7 sets, daily range): BP systolic 113–139; BP diastolic 60–68
--- NOTE | 2024-12-27 02:53 | NUR ---
PT CALLED RN TO ROOM DUE TO LIGHT IN ROOM. LIGHT TURNED OFF AND PT REQUESTS PAIN MEDICATION WHEN TIME.
--- NOTE | 2024-12-27 05:13 | NUR ---
SHIFT SUMMARY POD #1 LAP BRIDGETT. 4X LAP SITES WITH ISREAL, CDI. PT WITH DECREASED URINE OUTPUT AT BASELINE PER PT; HOME MEDS UPDATED PER PT LIST. PT SBA TO BATHROOM WITH STAFF. PT WITH DIFFICULTY SLEEPING DURING NOC SHIFT. MEDICATED PER EMAR FOR PAIN.
[2024-12-27 05:33] LABS: Hematocrit 40.9 % (37.0-53.0); Hemoglobin 13.3 g/dL (13.5-17.5); Mean Corpuscular HGB Conc 32.5 g/dL (31.5-36.5); Mean Corpuscular Volume 94 fL (80-100); NRBC ABSOLUTE 0.00 K/mm3 (0.00-0.02); NRBC Auto 0.0 /100 WBC (0.0-0.2); Platelet Count 165 K/mm3 (150-400); RDW Coefficient Variation 13.6 % (11.7-14.2); RDW Standard Deviation 47.4 fL (35.1-46.3)
[2024-12-27 06:00] LABS: BAND PERCENT MAN 15 % (0-8); BASOPHILS ABSOLUTE MAN 0.00 K/mm3 (0.00-0.23); BASOPHILS PERCENT MAN 0 % (0-2); EOSINOPHILS ABSOLUTE MAN 0.00 K/mm3 (0.00-0.68); EOSINOPHILS PERCENT MAN 0 % (0-6); LYMPHOCYTES ABSOLUTE MAN 1.64 K/mm3 (0.84-5.20); LYMPHOCYTES PERCENT MAN 8 % (21-46); MONOCYTES ABSOLUTE MAN 1.64 K/mm3 (0.16-1.47); MONOCYTES PERCENT MAN 8 % (4-13); NEUTROPHILS ABSOLUTE MAN 17.26 K/mm3 (1.96-9.15); SEG NEUTROPHILS PERCENT MAN 69 % (41-73)
[2024-12-27 06:11] LABS: Anion Gap 10.0 mmol/L (3-11); Blood Urea Nitrogen 29.0 mg/dL (8-24); CO2, Blood 28.0 mmol/L (21-32); Calcium, Blood 8.9 mg/dL (8.5-10.1); Chloride, Blood 103.0 mmol/L (98-108); Creatinine, Blood 2.03 mg/dL (0.60-1.20); Glucose, Blood 165.0 mg/dL (70-99); Potassium, Blood 4.7 mmol/L (3.5-5.5); Sodium, Blood 136.0 mmol/L (136-145)
[2024-12-27 10:44] LABS: BASOPHILS ABSOLUTE AUTO 0.02 K/mm3 (0.00-0.23); BASOPHILS PERCENT AUTO 0 % (0-2); Hematocrit 35.2 % (37.0-53.0); Hemoglobin 11.5 g/dL (13.5-17.5); LYMPHOCYTES ABSOLUTE AUTO 0.39 K/mm3 (0.84-5.20); LYMPHOCYTES PERCENT AUTO 3 % (21-46); MONOCYTES ABSOLUTE AUTO 1.06 K/mm3 (0.16-1.47); MONOCYTES PERCENT AUTO 7 % (4-13); Mean Corpuscular HGB Conc 32.7 g/dL (31.5-36.5); Mean Corpuscular Volume 94 fL (80-100); NRBC ABSOLUTE 0.00 K/mm3 (0.00-0.02); NRBC Auto 0.0 /100 WBC (0.0-0.2); Platelet Count 129 K/mm3 (150-400); RDW Coefficient Variation 13.7 % (11.7-14.2); RDW Standard Deviation 46.9 fL (35.1-46.3)
[2024-12-27 11:12] LABS: EOSINOPHILS ABSOLUTE AUTO 0.00 K/mm3 (0.00-0.68); EOSINOPHILS PERCENT AUTO 0 % (0-6); IMMATURE GRAN ABSOLUTE AUTO 0.06 K/mm3 (0.00-0.10); IMMATURE GRAN PERCENT AUTO 0 % (0-1); NEUTROPHILS ABSOLUTE AUTO 13.89 K/mm3 (1.96-9.15); NEUTROPHILS PERCENT AUTO 90 % (41-73)
--- NOTE | 2024-12-27 11:29 | NUR ---
PT TO IMAGING.
[2024-12-27 11:40] LABS: Alanine Aminotransfer (ALT/SGP 2340.0 U/L (12-78); Albumin, Blood 2.8 g/dL (3.4-5.0); Albumin/Globulin Ratio 0.8 (0.8-1.8); Anion Gap 11.0 mmol/L (3-11); Aspartate Aminotrans (AST/SGOT 3125.0 U/L (12-37); Bilirubin, Total 3.9 mg/dL (0.1-1.0); Blood Urea Nitrogen 32.0 mg/dL (8-24); CO2, Blood 24.0 mmol/L (21-32); Calcium, Blood 8.4 mg/dL (8.5-10.1); Chloride, Blood 104.0 mmol/L (98-108); Creatinine, Blood 2.06 mg/dL (0.60-1.20); Globulin, Blood 3.3 g/dL (2.2-4.0); Glucose, Blood 244.0 mg/dL (70-99); Potassium, Blood 4.2 mmol/L (3.5-5.5); Sodium, Blood 135.0 mmol/L (136-145); Total Protein, Blood 6.1 g/dL (6.4-8.2)
--- NOTE | 2024-12-27 17:17 | NUR ---
SUMMARY PT HAS REPORTED PAIN TOLERABLE T/O SHIFT. TOLERATING DIET. LIVER FUNCTION TEST ELEVATED AND KIDNEY FUNCTION DECREASED PER LABS TODAY. DR GONZALES ORDERED US, NOTIFIED BY TECH WILL BE TO ROOM SHORTLY TO PERFORM US. CALL LIGHT IN REACH. PT PLEASANT AND COOPERATIVE.
[2024-12-27] MEDS ORDERED: NS 1,000 ML IV SCH (21:15)
[2024-12-28] VITALS (7 sets, daily range): BP systolic 116–139; BP diastolic 59–70
[2024-12-28 05:43] LABS: BASOPHILS ABSOLUTE AUTO 0.02 K/mm3 (0.00-0.23); BASOPHILS PERCENT AUTO 0 % (0-2); EOSINOPHILS ABSOLUTE AUTO 0.01 K/mm3 (0.00-0.68); EOSINOPHILS PERCENT AUTO 0 % (0-6); Hematocrit 33.9 % (37.0-53.0); Hemoglobin 11.2 g/dL (13.5-17.5); IMMATURE GRAN ABSOLUTE AUTO 0.07 K/mm3 (0.00-0.10); IMMATURE GRAN PERCENT AUTO 1 % (0-1); LYMPHOCYTES ABSOLUTE AUTO 1.02 K/mm3 (0.84-5.20); LYMPHOCYTES PERCENT AUTO 8 % (21-46); MONOCYTES ABSOLUTE AUTO 1.26 K/mm3 (0.16-1.47); MONOCYTES PERCENT AUTO 10 % (4-13); Mean Corpuscular HGB Conc 33.0 g/dL (31.5-36.5); Mean Corpuscular Volume 93 fL (80-100); NEUTROPHILS ABSOLUTE AUTO 10.06 K/mm3 (1.96-9.15); NEUTROPHILS PERCENT AUTO 81 % (41-73); NRBC ABSOLUTE 0.00 K/mm3 (0.00-0.02); NRBC Auto 0.0 /100 WBC (0.0-0.2); Platelet Count 133 K/mm3 (150-400); RDW Coefficient Variation 13.8 % (11.7-14.2); RDW Standard Deviation 47.2 fL (35.1-46.3)
[2024-12-28 06:20] LABS: Alanine Aminotransfer (ALT/SGP 1278.0 U/L (12-78); Albumin, Blood 2.7 g/dL (3.4-5.0); Albumin/Globulin Ratio 0.8 (0.8-1.8); Anion Gap 7.0 mmol/L (3-11); Aspartate Aminotrans (AST/SGOT 945.0 U/L (12-37); Bilirubin, Total 2.7 mg/dL (0.1-1.0); Blood Urea Nitrogen 37.0 mg/dL (8-24); CO2, Blood 28.0 mmol/L (21-32); Calcium, Blood 8.5 mg/dL (8.5-10.1); Chloride, Blood 104.0 mmol/L (98-108); Creatinine, Blood 2.31 mg/dL (0.60-1.20); Globulin, Blood 3.2 g/dL (2.2-4.0); Glucose, Blood 138.0 mg/dL (70-99); Potassium, Blood 3.9 mmol/L (3.5-5.5); Sodium, Blood 135.0 mmol/L (136-145); Total Protein, Blood 5.9 g/dL (6.4-8.2)
--- NOTE | 2024-12-28 07:55 | NUR ---
SUMMARY PT HAD 6 BEAT RUN OF V TACH AT 0240.PT WAS SLEEPING AT THE TIME,THEN PER CALIBRATION ENGINEER POPPED BACK INTO PACED RHYTHMN.I NOTIFIED AND HE ORDERED PACE INTERROGATION THIS AM. I HAVE PLACED ORDER, BUT HAVE BEEN UNABLE TO REACH [facility] YET,DAY [employer] ARE[employer] MANAGER AGREES TO FOLLOW UP.PT ALSO REPORTED MILD HALLUCINATIONS TONIGHT. STATES HE KNOWS THEY ARE NOT REAL. PT REPORTS HAS HAD VERY LITTLE SLEEP SINCE ADMIT.ADVISED PT TO NOTIFY IF THIS COINTINUES OR INCREASES.PT HAS HAD NO BM SINCE ADMIT,WHICH WILL REQUIRE ORDERS PER . PT HAS HX KIDNEY ISSUES AND CAN NOT TAKE MAGS FOR THIS.DAY RN AWARE.
--- NOTE | 2024-12-28 08:22 | NUR ---
PT NOTIFIED STAFF THIS AM HE IS OCC INCONT OF URINE WITH COUGH. PADS SUPPLIED.
[2024-12-28] MEDS ORDERED: Polyethylene Glycol 3350 17 gm PO SCH (09:50)
[2024-12-28] MEDS ORDERED: Darbepoetin (Pharmacy Consult) SC SCH (11:50)
[2024-12-28 12:11] LABS: Source, Urine Clean Catch
[2024-12-28 12:18] LABS: Bilirubin, Urine Neg (Neg); Color, Urine Yellow (P-Yellow); Glucose Qualitative, Urine Neg (Neg); Ketones, Urine Neg (Neg); Leukocyte Esterase, Urine 1+ (Neg); Protein, Urine 2+ (Neg); Specific Gravity, Urine 1.020 (1.003-1.022); Urobilinogen, Urine 1+ (Normal)
[2024-12-28 13:20] LABS: Red Blood Cells, Urine 0-2 /hpf (0-2)
[2024-12-28] MEDS ORDERED: Ondansetron HCl 2 MG / ML 2ML Vial IV PRN (17:10)
--- NOTE | 2024-12-28 19:06 | NUR ---
PATIENT IS ALERT AND ORITNED AND COOPERATIVE WITH CARE. AMBULATED IN THE HALLS THREE TIMES THIS SHIFT. C/O BLOATING, PASSING GAS AND BELCHING. PATIENT C/O NAUSEA AND VOMITTING, MEDICATED PER EMAR. DR. MICHAEL NOTIFIED OF THIS, PROTONIX ORDERED. PT WORKED WITH PT TODAY. SAT UP IN THE RECLINER. DR. PINA SAW THE PATIENT AND DECREASED HIS NS TO 75 ML/HR. WILL CONTINUE TO MONITOR
[2024-12-28] MEDS ORDERED: Pantoprazole Sodium 40 MG Injection IV SCH (21:00)
[2024-12-29 04:10] VITALS: BP 125/66
[2024-12-29 05:09] LABS: BASOPHILS ABSOLUTE AUTO 0.01 K/mm3 (0.00-0.23); BASOPHILS PERCENT AUTO 0 % (0-2); EOSINOPHILS ABSOLUTE AUTO 0.07 K/mm3 (0.00-0.68); EOSINOPHILS PERCENT AUTO 1 % (0-6); Hematocrit 31.9 % (37.0-53.0); Hemoglobin 10.0 g/dL (13.5-17.5); IMMATURE GRAN ABSOLUTE AUTO 0.02 K/mm3 (0.00-0.10); IMMATURE GRAN PERCENT AUTO 0 % (0-1); LYMPHOCYTES ABSOLUTE AUTO 0.48 K/mm3 (0.84-5.20); LYMPHOCYTES PERCENT AUTO 6 % (21-46); MONOCYTES ABSOLUTE AUTO 0.87 K/mm3 (0.16-1.47); MONOCYTES PERCENT AUTO 11 % (4-13); Mean Corpuscular HGB Conc 31.3 g/dL (31.5-36.5); Mean Corpuscular Volume 95 fL (80-100); NEUTROPHILS ABSOLUTE AUTO 6.34 K/mm3 (1.96-9.15); NEUTROPHILS PERCENT AUTO 81 % (41-73); NRBC ABSOLUTE 0.00 K/mm3 (0.00-0.02); NRBC Auto 0.0 /100 WBC (0.0-0.2); Platelet Count 130 K/mm3 (150-400); RDW Coefficient Variation 14.1 % (11.7-14.2); RDW Standard Deviation 49.9 fL (35.1-46.3)
[2024-12-29 05:43] LABS: Alanine Aminotransfer (ALT/SGP 698.0 U/L (12-78); Albumin, Blood 2.4 g/dL (3.4-5.0); Albumin/Globulin Ratio 0.7 (0.8-1.8); Anion Gap 7.0 mmol/L (3-11); Aspartate Aminotrans (AST/SGOT 223.0 U/L (12-37); Bilirubin, Total 1.8 mg/dL (0.1-1.0); Blood Urea Nitrogen 38.0 mg/dL (8-24); CO2, Blood 25.0 mmol/L (21-32); Calcium, Blood 7.7 mg/dL (8.5-10.1); Chloride, Blood 109.0 mmol/L (98-108); Creatinine, Blood 1.86 mg/dL (0.60-1.20); Globulin, Blood 3.3 g/dL (2.2-4.0); Glucose, Blood 84.0 mg/dL (70-99); Magnesium, Blood 1.6 mg/dL (1.6-2.4); Phosphorus, Blood 2.8 mg/dL (2.5-4.9); Potassium, Blood 4.1 mmol/L (3.5-5.5); Sodium, Blood 137.0 mmol/L (136-145); Thyroid Stimulating Hormone 1.74 uIU/mL (0.360-4.800); Total Protein, Blood 5.7 g/dL (6.4-8.2); Uric Acid, Blood 7.1 mg/dL (3.5-7.2)
--- NOTE | 2024-12-29 06:35 | NUR ---
SHIFT SUMMARY: REPORT FROM MARCELO ASTORGA, ASSUMED CARE OF PT. PT RESTING IN RECLINER AT START OF SHIFT. PT ASKED IF IT WAS MORNING ALREADY AND I STATED NO IT IS 8 AT NIGHT. PT HAD A LARGE BM AFTER AMBULATING IN [place]. PT REPORTS FEELING A LOT BETTER. MEDICATED PER EMAR. DENIES PAIN. ABD WITH 4 LAP SITES COVERED WITH GAUZE AND TEGADERM. ABD IS SOFT AND NON TENDER. SLEPT WELL T/O NOC. WANTS TO GO HOME TODAY. DR PINA HERE. V/O DECREASE IVF TO 50ML/HR AND SL IV AT NOON. WILL GIVE REPORT TO ONCFADI RN.
[2024-12-29 07:31] VITALS: BP 128/63
[2024-12-29] MEDS ORDERED: CALCIUM CIT 311 EAC7 PO (10:52)
[2024-12-29] MEDS ORDERED: B COMPLEX FORM0.4 MG PO (10:53)
[2024-12-29] MEDS ORDERED: METO25ER PO (12:20)
--- NOTE | 2024-12-29 13:40 | NUR ---
DISCHARGE: PACKET PRINTED AND PT EDUCATED. SCRIPT SENT TO [facility]. IV DC'D WNL, TIP INTACT. PT LEFT UNIT VIA WHEELCHAIR WITH EVANGELINA PATEL AT ABOUT 1333
== END 2024-12-29 12:59 | disposition home or self-care (01) | DRG 417 ==
LOC: ER 01:29 → SURS 08:36
PROVIDERS: Emergency Medicine; Internal Medicine; Internal Medicine Nephrology; Surgery; ADMIT Family Medicine
PROC: 3E03329 Introduction of Other Anti-infective into Peripheral Vein, Percutaneous Approach (ICD-10-PCS; 2024-12-25)
PROC: BF10YZZ Fluoroscopy of Bile Ducts using Other Contrast (ICD-10-PCS; 2024-12-26)
PROC: 0FT44ZZ Resection of Gallbladder, Percutaneous Endoscopic Approach (ICD-10-PCS; principal; 2024-12-26 12:30)
PROC: 4B02XSZ Measurement of Cardiac Pacemaker, External Approach (ICD-10-PCS; 2024-12-28)
DX: K80.10 Calculus of gallbladder with chronic cholecystitis without obstruction (principal); K85.10 Biliary acute pancreatitis without necrosis or infection; N17.9 Acute kidney failure, unspecified; E87.1 Hypo-osmolality and hyponatremia; K82.8 Other specified diseases of gallbladder; E03.9 Hypothyroidism, unspecified; N18.30 Chronic kidney disease, stage 3 unspecified; I12.9 Hypertensive chronic kidney disease with stage 1 through stage 4 chronic kidney disease, or unspecified chronic kidney disease; E78.5 Hyperlipidemia, unspecified; D63.1 Anemia in chronic kidney disease; D69.6 Thrombocytopenia, unspecified; E86.9 Volume depletion, unspecified; Z96.653 Presence of artificial knee joint, bilateral; Z88.5 Allergy status to narcotic agent; Z88.8 Allergy status to other drugs, medicaments and biological substances; Z88.6 Allergy status to analgesic agent; Z79.890 Hormone replacement therapy; Z85.46 Personal history of malignant neoplasm of prostate; Z90.79 Acquired absence of other genital organ(s); Z85.828 Personal history of other malignant neoplasm of skin; Z45.018 Encounter for adjustment and management of other part of cardiac pacemaker
CPT/HCPCS: 36415; 71046; 74150; 74177; 74300; 76705; 80048; 80053; 80061; 81001; 82465; 82533; 82550; 82570; 83690; 83735; 84100; 84300; 84443; 84478; 84484; 84550; 85025; 85610; 88304; 93005; 93010; 93280; 94640; 94664; 94760; 97116; 97162; 97530; 99285-25; A9270; C1729; J0690; J1100; J1171; J1650; J2003; J2405; J2470; J2704; J3010; J7030; J7120; Q9967